=== PATIENT | female | born 1970 ===

== ENCOUNTER 2017-06-29 12:00 | Inpatient (IN) | payer OTHER ==
[~2017-06-29] VITALS: Ht 172.7 cm; Wt 69.9 kg
[2017-06-29] MEDS ORDERED: CLONAZEPAM0.5 MG PO (13:52)
[2017-06-29] MEDS ORDERED: ZOLOFT50 MG PO (13:52)
[2017-06-29] MEDS ORDERED: [UNRECOGNIZED DRUG - OTHER] PO (13:52)
[2017-07-09] MEDS ORDERED: Intestinex CAP PO (13:10)
[2017-07-09] MEDS ORDERED: INTESTINEX680 M1 PO (13:10)
[2017-07-09] MEDS ORDERED: OXYC1TAB9 PO (13:10)
== END 2017-07-09 13:40 | disposition home or self-care (01) | DRG 329 ==
LOC: O/R 07-02 08:47 → SURG 07-02 08:47 → SURH 07-02 11:15 → SURG 07-03 02:43
PROVIDERS: Surgery
PROC: 07TC4ZZ Resection of Pelvis Lymphatic, Percutaneous Endoscopic Approach (ICD-10-PCS; 2017-07-02)
PROC: 0DQB4ZZ Repair Ileum, Percutaneous Endoscopic Approach (ICD-10-PCS; 2017-07-02)
PROC: 3E0F7GC Introduction of Other Therapeutic Substance into Respiratory Tract, Via Natural or Artificial Opening (ICD-10-PCS; 2017-07-02)
PROC: 0DTE4ZZ Resection of Large Intestine, Percutaneous Endoscopic Approach (ICD-10-PCS; principal; 2017-07-02 11:15)
PROC: 3E0336Z Introduction of Nutritional Substance into Peripheral Vein, Percutaneous Approach (ICD-10-PCS; 2017-07-05)
DX: C18.0 Malignant neoplasm of cecum (principal); K63.1 Perforation of intestine (nontraumatic); K91.71 Accidental puncture and laceration of a digestive system organ or structure during a digestive system procedure; F31.89 Other bipolar disorder; R59.0 Localized enlarged lymph nodes; K29.00 Acute gastritis without bleeding; K91.0 Vomiting following gastrointestinal surgery; F41.8 Other specified anxiety disorders; G47.09 Other insomnia; N94.89 Other specified conditions associated with female genital organs and menstrual cycle; J45.998 Other asthma

== ENCOUNTER 2017-09-21 05:46 | Inpatient (IN) | payer OTHER ==
[~2017-09-21 05:46] MED LIST: CLONAZEPAM0.5 MG PO; INTESTINEX680 M1 PO; Intestinex CAP PO; OXYC1TAB9 PO; ZOLOFT50 MG PO; [UNRECOGNIZED DRUG - OTHER] PO
[2017-09-22] MEDS ORDERED: TRAM1TAB98 PO (14:23)
== END 2017-09-22 17:40 | disposition home or self-care (01) | DRG 375 ==
LOC: CIR.AMB 05:46 → SURH 15:53 → MEDI 15:53 → SURH 21:53
PROVIDERS: Surgery
PROC: 05H633Z Insertion of Infusion Device into Left Subclavian Vein, Percutaneous Approach (ICD-10-PCS; 2017-09-21)
PROC: 4A033R1 Measurement of Arterial Saturation, Peripheral, Percutaneous Approach (ICD-10-PCS; 2017-09-21)
PROC: 4A12X4Z Monitoring of Cardiac Electrical Activity, External Approach (ICD-10-PCS; 2017-09-21)
PROC: 0JH63WZ Insertion of Totally Implantable Vascular Access Device into Chest Subcutaneous Tissue and Fascia, Percutaneous Approach (ICD-10-PCS; principal; 2017-09-21 21:30)
DX: C18.2 Malignant neoplasm of ascending colon (principal); J90 Pleural effusion, not elsewhere classified; F31.89 Other bipolar disorder; K29.60 Other gastritis without bleeding; F41.8 Other specified anxiety disorders
CPT/HCPCS: 36561; C1751; 82805; 36600